=== PATIENT | female | born 1985 | race American Indian/Alaskan Native ===

== ENCOUNTER 2017-03-15 16:24 | Emergency (ER) | payer SELFPAY ==
[2017-03-15 17:14] VITALS: BP 128/88
--- NOTE | 2017-03-15 17:46 | Emergency Department Report ---
ED ENT HPI - General Chief complaint: Dental/Oral Stated complaint: LT FACIAL PAIN Time Seen by Provider: 03/15/17 17:36 Source: patient Mode of arrival: Ambulatory Limitations: No Limitations - History of Present Illness Initial comments: Pt c/o left lower toothache since yesterday. PT states the pain is going up the whole side of her face. PT states that she tried otc analgesics and she did not get any relief. PT denies recent dental work or visit. PT has a hx of dental cavities. MD complaint: tooth pain -: Gradual, days(s) Location: tooth # (17) 1 - pain Severity: severe Severity scale (0 -10): 10 Quality: aching, sharp Consistency: constant Improves with: none Worsens with: eating, movement, other (cold, palpation ) Context- Dental: history of dental caries, poor dental care Associated Symptoms: toothache. denies: fever, gum swelling, pain with swallowing, sore throat - Related Data Previous Rx's Medication Instructions Recorded Last Taken Type Acetaminophen/Codeine [Tylenol #3] 1 tab PO Q6H PRN #12 tab 03/15/17 Unknown Rx Clindamycin [Clindamycin CAP] 300 mg PO Q8H #30 cap 03/15/17 Unknown Rx Ibuprofen [Motrin] 600 mg PO Q8H PRN #15 tablet 03/15/17 Unknown Rx Allergies Allergy/AdvReac Type Severity Reaction Status Date / Time ruiz flavor Allergy Anaphylaxis Verified 03/15/17 17:09 Penicillins Allergy Hives Verified 03/15/17 17:09 ED Dental HPI - General Chief complaint: Dental/Oral Stated complaint: LT FACIAL PAIN Time Seen by Provider: 03/15/17 17:36 Source: patient Mode of arrival: Ambulatory Limitations: No Limitations - Related Data Previous Rx's Medication Instructions Recorded Last Taken Type Acetaminophen/Codeine [Tylenol #3] 1 tab PO Q6H PRN #12 tab 03/15/17 Unknown Rx Clindamycin [Clindamycin CAP] 300 mg PO Q8H #30 cap 03/15/17 Unknown Rx Ibuprofen [Motrin] 600 mg PO Q8H PRN #15 tablet 03/15/17 Unknown Rx Allergies Allergy/AdvReac Type Severity Reaction Status Date / Time ruiz flavor Allergy Anaphylaxis Verified 03/15/17 17:09 Penicillins Allergy Hives Verified 03/15/17 17:09 ED Review of Systems ROS: Stated complaint: LT FACIAL PAIN Other details as noted in HPI Comment: All other systems reviewed and negative Constitutional: denies: chills, fever ENT: as per HPI, dental pain Gastrointestinal: denies: abdominal pain, nausea Genitourinary: denies: abnormal menses Neurological: headache (left side of face hurts ) ED Past Medical Hx - Past Medical History Previous Medical History?: No - Surgical History Past Surgical History?: No - Social History Smoking Status: Current Every Day Smoker Substance Use Type: Alcohol - Medications Home Medications: Home Medications Medication Instructions Recorded Confirmed Last Taken Type Acetaminophen/Codeine [Tylenol #3] 1 tab PO Q6H PRN #12 tab 03/15/17 Unknown Rx Clindamycin [Clindamycin CAP] 300 mg PO Q8H #30 cap 03/15/17 Unknown Rx Ibuprofen [Motrin] 600 mg PO Q8H PRN #15 tablet 03/15/17 Unknown Rx ED Physical Exam - General Limitations: No Limitations General appearance: alert, in no apparent distress - Head Head exam: Present: atraumatic, normocephalic, normal inspection - Eye Eye exam: Present: normal appearance, PERRL, EOMI. Absent: conjunctival injection - ENT ENT exam: Present: normal orophraynx, mucous membranes moist, TM's normal bilaterally, normal external ear exam - Expanded ENT Exam Expanded Mouth exam: Present: normal external inspection. Absent: drooling, trismus Teeth exam: Present: dental caries, dental tenderness # (teeth 17 and 18, severe decay, ttp, no abscess noted. ) Throat exam: Positive: normal inspection. Negative: tonsillar erythema, tonsillomegaly, tonsillar exudate - Neck Neck exam: Present: normal inspection, full ROM. Absent: tenderness, meningismus - Respiratory Respiratory exam: Present: normal lung sounds bilaterally. Absent: respiratory distress, wheezes - Cardiovascular Cardiovascular Exam: Present: regular rate, normal rhythm - Extremities Exam Extremities exam: Present: normal inspection, full ROM - Back Exam Back exam: Present: normal inspection, full ROM - Neurological Exam Neurological exam: Present: alert, oriented X3, normal gait - Psychiatric Psychiatric exam: Present: normal affect, normal mood - Skin Skin exam: Present: warm, dry, intact ED Course Vital Signs 03/15/17 17:11 Temperature 98.8 F Pulse Rate 60 Respiratory 17 Rate Blood Pressure 128/88 O2 Sat by Pulse 100 Oximetry - Reevaluation(s) Reevaluation #1: 03/15/17 17:45 PT aware of dx and need to follow up with Dentist. PT has no questions at this time. - Pulse Oximetry Interpretation Digit-Finger Initial Pulse Oximetry Readin Actions Taken: none ED Medical Decision Making - Differential Diagnosis dental abscess, toothache, dental decay Critical Care Time: No Critical care attestation.: If time is entered above; I have spent that time in minutes in the direct care of this critically ill patient, excluding procedure time. ED Disposition Clinical Impression: Dental decay, Toothache Disposition: TO HOME OR SELFCARE Is pt being admited?: No Does the pt Need Aspirin: No Condition: Stable Instructions: Dental Abscess (ED), Dental Caries (ED), Toothache (ED) Additional Instructions: Finish all of your antibiotics no driving or alcohol after taking Tylenol #3 Follow up with a Dentist in the next 3-5 days Refrain from smoking Good oral hygiene Return to the ED if you notice facial swelling, you can not open your mouth or you start to drool Prescriptions: Acetaminophen/Codeine [Tylenol #3] 1 tab PO Q6H PRN #12 tab PRN Reason: Pain , Severe (7-10) Clindamycin [Clindamycin CAP] 300 mg PO Q8H #30 cap Ibuprofen [Motrin] 600 mg PO Q8H PRN #15 tablet PRN Reason: Pain Referrals: PRIMARY CARE, [Primary Care Provider] - 3-5 Days [facility] [Outside] - 3-5 Days Forms: Work/School Release Form(ED) Time of Disposition: 17:48
== END 2017-03-15 19:28 | disposition home or self-care (01) ==
LOC: ED 16:24
DX: K02.9 Dental caries, unspecified (principal); F17.200 Nicotine dependence, unspecified, uncomplicated; Z88.0 Allergy status to penicillin; Z91.018 Allergy to other foods
CPT/HCPCS: 99282

== ENCOUNTER 2019-06-23 16:59 | Emergency (ER) | payer SELFPAY ==
--- NOTE | 2019-06-23 17:04 | Emergency Department Report ---
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 This initial assessment/diagnostic orders/clinical plan/treatment(s) is/are subject to change based on patient's health status, clinical progression and re- assessment by fellow clinical providers in the ED. Further treatment and workup at subsequent clinical providers discretion. Patient/guardians urged not to elope from the ED as their condition may be serious if not clinically assessed and managed. Initial orders include: 1- Patient sent to [facility] for further evaluation and treatment 2- xrays
[2019-06-23 17:07] VITALS: BP 141/88
[2019-06-23] MEDS ORDERED: IBUPROFEN 800 MG TAB PO ONE (18:25)
[2019-06-23] MEDS ORDERED: traMADol 50 MG TAB PO ONE (18:25)
--- NOTE | 2019-06-23 18:32 | XRay Report ---
Left great toe, 3 views INDICATION: Pain following injury today FINDINGS: There is a small minimally distracted chip fracture from the base of the distal phalanx of the great toe toward the lateral side. This shows no significant displacement or angulation. The prox imal phalanx and first metatarsal are intact. No foreign body is seen. Signer Name: Jhonatan Benjamin MD Signed: 06/23/2019 6:27 PM Workstation Name: [id number]
--- NOTE | 2019-06-23 18:41 | Emergency Department Report ---
ED Lower Extremity HPI - General Chief Complaint: Extremity Injury, Lower Stated Complaint: LFT TOE POSS BROKEN/PAIN Time Seen by Provider: 06/23/19 17:03 Source: patient Mode of arrival: Ambulatory Limitations: No Limitations - History of Present Illness Initial Comments: 34-year-old -Russian female presents to the emergency room for left great toe injury. Patient states that it had fallen on her left great toe. Patient comes in pain and swelling. Patient denies any past medical history takes no medications daily basis and has no known drug allergies. MD Complaint: foot injury (great toe) -: This evening Place: home Severity: severe Severity scale (0 -10): 10 Improves With: nothing Context: direct blow Associated Symptoms: swelling - Related Data Previous Rx's Medication Instructions Recorded Last Taken Type Acetaminophen/Codeine [Tylenol #3] 1 tab PO Q6H PRN #12 tab 03/15/17 Unknown Rx Clindamycin [Clindamycin CAP] 300 mg PO Q8H #30 cap 03/15/17 Unknown Rx Ibuprofen [Motrin] 600 mg PO Q8H PRN #15 tablet 03/15/17 Unknown Rx HYDROcodone/APAP 7.5-325 [[place] 1 each PO Q8HR PRN #12 tablet 06/23/19 Unknown Rx 7.5/325] Ibuprofen [Motrin 800 MG tab] 800 mg PO Q8HR PRN #30 tablet 06/23/19 Unknown Rx Allergies Allergy/AdvReac Type Severity Reaction Status Date / Time uriz flavor Allergy Anaphylaxis Verified 03/15/17 17:09 Penicillins Allergy Hives Verified 03/15/17 17:09 ED Review of Systems ROS: Stated complaint: LFT TOE POSS BROKEN/PAIN Other details as noted in HPI Comment: All other systems reviewed and negative ED Past Medical Hx - Past Medical History Previous Medical History?: No - Surgical History Past Surgical History?: No - Social History Smoking Status: Current Every Day Smoker Substance Use Type: None - Medications Home Medications: Home Medications Medication Instructions Recorded Confirmed Last Taken Type Acetaminophen/Codeine [Tylenol #3] 1 tab PO Q6H PRN #12 tab 03/15/17 Unknown Rx Clindamycin [Clindamycin CAP] 300 mg PO Q8H #30 cap 03/15/17 Unknown Rx Ibuprofen [Motrin] 600 mg PO Q8H PRN #15 tablet 03/15/17 Unknown Rx HYDROcodone/APAP 7.5-325 [[place] 1 each PO Q8HR PRN #12 tablet 06/23/19 Unknown Rx 7.5/325] Ibuprofen [Motrin 800 MG tab] 800 mg PO Q8HR PRN #30 tablet 06/23/19 Unknown Rx ED Physical Exam - General Limitations: No Limitations General appearance: alert, in no apparent distress - Head Head exam: Present: atraumatic, normocephalic - Expanded Lower Extremity Exam Left Foot/Toe exam: Present: tenderness, swelling, ecchymosis, erythema Neuro vascular tendon exam: Present: no vascular compromise - Neurological Exam Neurological exam: Present: alert, oriented X3 - Psychiatric Psychiatric exam: Present: normal affect, normal mood - Skin Skin exam: Present: warm, dry, intact, normal color. Absent: rash ED Course Vital Signs 06/23/19 17:06 Temperature 98.8 F Pulse Rate 81 Respiratory 20 Rate Blood Pressure 141/88 O2 Sat by Pulse 99 Oximetry ED Lower Extremity MDM - Radiology Data Radiology results: report reviewed Patient: LUNA MANJARREZ MR#: [id number] : 1985 Acct:[id number] Age/Sex: 34 / F ADM Date: 06/23/19 Loc: ED Attending Dr: Ordering Physician: CAROLINA CLEMENS NP Date of Service: 06/23/19 Procedure(s): XR toe(s) 2+V LT Accession Number(s): [id number] cc: CAROLINA CLEMENS NP Fluoro Time In Minutes: Left great toe, 3 views INDICATION: Pain following injury today FINDINGS: There is a small minimally distracted chip fracture from the base of the distal phalanx of the great toe toward the lateral side. This shows no significant displacement or angulation. The proximal phalanx and first metatarsal are intact. No foreign body is seen. Signer Name: Jhonatan Benjamin MD Signed: 06/23/2019 6:27 PM Workstation Name: [id number] Transcribed By: NICOLETTE Dictated By: Jhonatan Benjamin MD Electronically Authenticated By: Jhonatan Benjamin MD Signed Date/Time: 06/23/191826 DD/ 25 TD/TT: - Medical Decision Making 34-year-old -Russian female presents to the emergency room for left great toe injury. Patient states that it had fallen on her left great toe. Patient comes in pain and swelling. Patient denies any past medical history takes no medications daily basis and has no known drug allergies. Critical care attestation.: If time is entered above; I have spent that time in minutes in the direct care of this critically ill patient, excluding procedure time. ED Disposition Clinical Impression: Fracture of left great toe Disposition: TO HOME OR SELFCARE Is pt being admited?: No Does the pt Need Aspirin: No Condition: Stable Instructions: Toe Fracture (ED) Prescriptions: Ibuprofen [Motrin 800 MG tab] 800 mg PO Q8HR PRN #30 tablet PRN Reason: Pain , Severe (7-10) HYDROcodone/APAP 7.5-325 [D[place]ight 7.5/325] 1 each PO Q8HR PRN #12 tablet PRN Reason: Pain Referrals: PRIMARY CAREMD [Primary Care Provider] - 3-5 Days JOSE KRAFT MD [Staff Physician] - 3-5 Days
== END 2019-06-23 19:30 | disposition home or self-care (01) ==
LOC: ED 16:59
DX: S92.422A Displaced fracture of distal phalanx of left great toe, initial encounter for closed fracture (principal); F17.200 Nicotine dependence, unspecified, uncomplicated; Z79.899 Other long term (current) drug therapy; Z88.0 Allergy status to penicillin; Z91.018 Allergy to other foods; W18.39XA Other fall on same level, initial encounter; Y93.89 Activity, other specified; Y92.89 Other specified places as the place of occurrence of the external cause; Y99.8 Other external cause status

== ENCOUNTER 2019-07-30 20:43 | Emergency (ER) | payer SELFPAY | END 2019-07-30 22:30 | disposition home or self-care (01) | LOC: ED 20:43 | CPT/HCPCS: 36415; 80048; 82550; 83735; 84443; 84702; 85027; 85610; 93005; 93010 ==

== ENCOUNTER 2020-06-14 20:31 | Emergency (ER) | payer SELFPAY ==
--- NOTE | 2020-06-14 22:04 | XRay Report ---
RIGHT KNEE 3 VIEWS INDICATION / CLINICAL INFORMATION: right knee pain COMPARISON: None available. FINDINGS: BONES / JOINT(S): No acute fracture or subluxation. No significant arthritis. SOFT TISSUES: There is a small effusion in the suprapatella bursa. ADDITIONAL FINDINGS: None. Signer Name: Kareem Mccarty MD Signed: 06/14/2020 9:59 PM Workstation Name: [id number]
[2020-06-14] MEDS ORDERED: IBUPROFEN 600 MG TAB PO ONE (22:43)
[2020-06-14] MEDS ORDERED: ONDANSETRON 4 MG ODT TAB PO ONE (22:43)
[2020-06-14] MEDS ORDERED: HYDROcodone/ACETAMINOPHEN 7.5-325MG TAB PO ONE (22:43)
--- NOTE | 2020-06-14 22:59 | Emergency Department Report ---
ED Lower Extremity HPI - General Chief Complaint: Extremity Injury, Lower Stated Complaint: RT KNEE POPPED OUT OF PLACE/PAINFUL Source: patient Mode of arrival: Ambulatory Limitations: No Limitations - History of Present Illness Initial Comments: Patient is a 35-year-old -[place]ine[place] female with no past medical history presents to the ED with complaint of acute onset persistent severe right knee pain and swelling after she buckled while walking 24 hours ago. Patient states that the pain and the swelling have worsened in the last 12 hours. Patient states that the pain is worse with ambulation, palpation or weight-bearing on the right leg. Patient denies fall, traumatic injury, heavy lifting, numbness and tingling or weakness of lower extremities bilaterally, hip pain, low back pain, chest pain, shortness of breath, fever, chills, nausea and vomiting. MD Complaint: knee injury (right ), other (right knee swelling) -: Sudden, hour(s) (24) Injury: Knee: Right (Pain, swelling) Type of Injury: inversion, hyperflexion Place: street/outdoors Severity: severe Severity scale (0 -10): 8 Improves With: nothing Worsens With: weight bearing, movement, palpation Context: walking Associated Symptoms: snap/pop sensation, swelling, able to partially bear weight. denies: numbness, tingling, unable to bear weight - Related Data Previous Rx's Medication Instructions Recorded Last Taken Type Acetaminophen/Codeine [Tylenol #3] 1 tab PO Q6H PRN #12 tab 03/15/17 Unknown Rx Clindamycin [Clindamycin CAP] 300 mg PO Q8H #30 cap 03/15/17 Unknown Rx Ibuprofen [Motrin] 600 mg PO Q8H PRN #15 tablet 03/15/17 Unknown Rx HYDROcodone/APAP 7.5-325 [[place] 1 each PO Q8HR PRN #12 tablet 06/23/19 Unknown Rx 7.5/325] Ibuprofen [Motrin 800 MG tab] 800 mg PO Q8HR PRN #30 tablet 06/14/20 Unknown Rx methOCARBAMOL [Robaxin TAB] 500 mg PO Q12H PRN #24 tab 06/14/20 Unknown Rx predniSONE [Deltasone] 40 mg PO QDAY #10 tab 06/14/20 Unknown Rx traMADoL [Ultram] 50 mg PO Q6HR PRN #12 tablet 06/14/20 Unknown Rx Allergies Allergy/AdvReac Type Severity Reaction Status Date / Time ruiz flavor Allergy Anaphylaxis Verified 03/15/17 17:09 Penicillins Allergy Hives Verified 03/15/17 17:09 ED Review of Systems ROS: Stated complaint: RT KNEE POPPED OUT OF PLACE/PAINFUL Other details as noted in HPI Constitutional: denies: chills, fever Eyes: denies: eye pain, eye discharge, vision change ENT: denies: ear pain, throat pain Respiratory: denies: cough, shortness of breath, wheezing Cardiovascular: denies: chest pain, palpitations Endocrine: no symptoms reported Gastrointestinal: denies: abdominal pain, nausea, diarrhea Genitourinary: denies: urgency, dysuria, discharge Musculoskeletal: joint swelling (Right knee), arthralgia (Right knee pain and swelling). denies: back pain Skin: denies: rash, lesions Neurological: denies: headache, weakness, paresthesias Psychiatric: denies: anxiety, depression Hematological/Lymphatic: denies: easy bleeding, easy bruising ED Past Medical Hx - Past Medical History Previous Medical History?: No - Surgical History Past Surgical History?: No - Social History Smoking Status: Current Every Day Smoker Substance Use Type: None - Medications Home Medications: Home Medications Medication Instructions Recorded Confirmed Last Taken Type Acetaminophen/Codeine [Tylenol #3] 1 tab PO Q6H PRN #12 tab 03/15/17 Unknown Rx Clindamycin [Clindamycin CAP] 300 mg PO Q8H #30 cap 03/15/17 Unknown Rx Ibuprofen [Motrin] 600 mg PO Q8H PRN #15 tablet 03/15/17 Unknown Rx HYDROcodone/APAP 7.5-325 [[place] 1 each PO Q8HR PRN #12 tablet 06/23/19 Unknown Rx 7.5/325] Ibuprofen [Motrin 800 MG tab] 800 mg PO Q8HR PRN #30 tablet 06/14/20 Unknown Rx methOCARBAMOL [Robaxin TAB] 500 mg PO Q12H PRN #24 tab 06/14/20 Unknown Rx predniSONE [Deltasone] 40 mg PO QDAY #10 tab 06/14/20 Unknown Rx traMADoL [Ultram] 50 mg PO Q6HR PRN #12 tablet 06/14/20 Unknown Rx ED Physical Exam - General Limitations: No Limitations General appearance: alert, in no apparent distress - Head Head exam: Present: atraumatic, normocephalic, normal inspection - Eye Eye exam: Present: normal appearance, PERRL, EOMI Pupils: Present: normal accommodation - ENT ENT exam: Present: normal exam, normal orophraynx, mucous membranes moist, TM's normal bilaterally, normal external ear exam - Neck Neck exam: Present: normal inspection, full ROM - Respiratory Respiratory exam: Present: normal lung sounds bilaterally. Absent: respiratory distress, wheezes, rales, rhonchi, chest wall tenderness, accessory muscle use, prolonged expiratory - Cardiovascular Cardiovascular Exam: Present: regular rate, normal rhythm, normal heart sounds. Absent: systolic murmur, diastolic murmur, rubs, gallop - GI/Abdominal GI/Abdominal exam: Present: soft, normal bowel sounds. Absent: tenderness, guarding, rebound, hyperactive bowel sounds, hypoactive bowel sounds, organomegaly - Extremities Exam Extremities exam: Present: normal inspection, tenderness (Palpable right knee tenderness with mild swelling and limited range of motion due to pain), normal capillary refill, joint swelling (Right knee swelling mildly). Absent: full ROM (Limited range of motion due to pain on right knee), pedal edema, calf tenderness - Back Exam Back exam: Present: normal inspection, full ROM. Absent: tenderness, CVA tenderness (R), CVA tenderness (L), muscle spasm, paraspinal tenderness, vertebral tenderness - Neurological Exam Neurological exam: Present: alert, oriented X3, CN II-XII intact, normal gait, reflexes normal - Psychiatric Psychiatric exam: Present: normal affect, normal mood - Skin Skin exam: Present: warm, dry, intact, normal color. Absent: rash ED Course Vital Signs 06/14/20 21:10 Temperature 98.9 F Pulse Rate 85 Respiratory 18 Rate Blood Pressure 138/86 O2 Sat by Pulse 99 Oximetry ED Lower Extremity MDM - Radiology Data Radiology results: report reviewed, image reviewed Findings [facility] [address] [place] [address] XRay Report Signed Patient: LUNA MANJARREZ MR#: [id number] : 1985 Acct:[id number] Age/Sex: 35 / F ADM Date: 06/14/20 Loc: ED Attending Dr: Ordering Physician: ED DOCMD Date of Service: 06/14/20 Procedure(s): XR knee 3V RT Accession Number(s): [id number] cc: ED DOC, Fluoro Time In Minutes: RIGHT KNEE 3 VIEWS INDICATION / CLINICAL INFORMATION: right knee pain COMPARISON: None available. FINDINGS: BONES / JOINT(S): No acute fracture or subluxation. No significant arthritis. SOFT TISSUES: There is a small effusion in the suprapatella bursa. ADDITIONAL FINDINGS: None. Signer Name: Kareem Mccarty MD Signed: 06/14/2020 9:59 PM Workstation Name: [id number] Transcribed By: JAS Dictated By: Kareem Mccarty MD Electronically Authenticated By: Kaerem Mccarty MD Signed Date/Time: 06/14/202158 DD/ 57 TD/TT: - Medical Decision Making This is a 35-year-old -[place] female with no past medical history presents to the ED with complaint of acute onset persistent severe right knee pain and swelling after she buckled while walking 24 hours ago. Patient states that the pain and the swelling have worsened in the last 12 hours. Patient states that the pain is worse with ambulation, palpation or weight-bearing on the right leg. In the ED, patient is alert and oriented x3 and is not in distress. Patient however appears to be in significant pain. Patient was treated for pain in the ED and right knee x-ray shows no acute fractures or subluxation but mild joint effusion. Patient's right knee was splinted with [place] wrap and the patient was discharged home on pain medications and advised to follow-up with her primary care physician in 5 to 7 days for reevaluation or return to the ED immediately if symptoms get worse. - Differential Diagnosis Muscle strain; knee sprain; knee fracture; DJD; muscle spasm Critical care attestation.: If time is entered above; I have spent that time in minutes in the direct care of this critically ill patient, excluding procedure time. ED Disposition Clinical Impression: Sprain of right knee Qualifiers: Encounter type: initial encounter Involved ligament of knee: unspecified ligament Qualified Code(s): S83.91XA - Sprain of unspecified site of right knee, initial encounter Muscle strain of right knee Qualifiers: Encounter type: initial encounter Qualified Code(s): S86.911A - Strain of unspecified muscle(s) and tendon(s) at lower leg level, right leg, initial encounter Disposition: TO HOME OR SELFCARE Is pt being admited?: No Does the pt Need Aspirin: No Condition: Stable Instructions: Muscle Strain, [id number], Knee Sprain, Adult, [id number] Additional Instructions: The right knee x-ray shows no acute fractures or subluxations. Therefore take pain medications with food, drink plenty of fluids and follow-up with your primary care physician in 5 to 7 days for reevaluation. Return to the ED immediately if symptoms get worse. Prescriptions: predniSONE [Deltasone] 40 mg PO QDAY #10 tab Ibuprofen [Motrin 800 MG tab] 800 mg PO Q8HR PRN #30 tablet PRN Reason: Pain , Severe (7-10) methOCARBAMOL [Robaxin TAB] 500 mg PO Q12H PRN #24 tab PRN Reason: Muscle Spasm traMADoL [Ultram] 50 mg PO Q6HR PRN #12 tablet PRN Reason: Pain Referrals: [facility] [Provider Group] - 3-5 Days Forms: Work/School Release Form(ED) Time of Disposition: 23:11 Print Language: CENTRAL AFRICAN
[2020-06-15 01:20] VITALS: BP 132/85
== END 2020-06-15 | disposition home or self-care (01) ==
LOC: ED 20:31
DX: S83.91XA Sprain of unspecified site of right knee, initial encounter (principal); S86.911A Strain of unspecified muscle(s) and tendon(s) at lower leg level, right leg, initial encounter; F17.200 Nicotine dependence, unspecified, uncomplicated; Z88.0 Allergy status to penicillin; Z79.899 Other long term (current) drug therapy; Z91.018 Allergy to other foods; X58.XXXA Exposure to other specified factors, initial encounter; Y93.89 Activity, other specified; Y92.89 Other specified places as the place of occurrence of the external cause; Y99.8 Other external cause status
CPT/HCPCS: Q0162

== ENCOUNTER 2021-06-19 14:53 | Emergency (ER) | payer SELFPAY ==
[2021-06-19] MEDS ORDERED: oxyCODONE /ACETAMINOPHEN 5-325MG TAB PO ONE (15:06)
[2021-06-19] MEDS ORDERED: IBUPROFEN 800 MG TAB PO STA (15:06)
--- NOTE | 2021-06-19 15:15 | Emergency Department Report ---
ED General Adult HPI - General Chief complaint: Extremity Injury, Lower Stated complaint: LT ANKLE SWOLLEN Time Seen by Provider: 06/19/21 15:04 Source: patient Mode of arrival: Ambulatory Limitations: No Limitations - History of Present Illness Initial comments: 36-year-old -[place] female patient presents with complaints of left ankle pain after twisting injury last night. She rates her pain as a 9/10 in severity and states it worsened upon waking this morning. Pain worsens with ambulation and to touch. She denies any loss of sensation or discoloration to her skin. - Related Data Previous Rx's Medication Instructions Recorded Last Taken Type Acetaminophen/Codeine [Tylenol #3] 1 tab PO Q6H PRN #12 tab 03/15/17 Unknown Rx Clindamycin [Clindamycin CAP] 300 mg PO Q8H #30 cap 03/15/17 Unknown Rx Ibuprofen [Motrin] 600 mg PO Q8H PRN #15 tablet 03/15/17 Unknown Rx HYDROcodone/APAP 7.5-325 [[place] 1 each PO Q8HR PRN #12 tablet 06/23/19 Unknown Rx 7.5/325] Ibuprofen [Motrin 800 MG tab] 800 mg PO Q8HR PRN #30 tablet 06/14/20 Unknown Rx methOCARBAMOL [Robaxin TAB] 500 mg PO Q12H PRN #24 tab 06/14/20 Unknown Rx predniSONE [Deltasone] 40 mg PO QDAY #10 tab 06/14/20 Unknown Rx traMADoL [Ultram] 50 mg PO Q6HR PRN #12 tablet 06/14/20 Unknown Rx Acetaminophen/Codeine [Tylenol 1 tab PO Q8H PRN #12 tab 06/19/21 Unknown Rx /Codeine # 3 tab] Naproxen [Naprosyn] 500 mg PO BID PRN #20 tablet 06/19/21 Unknown Rx Allergies Allergy/AdvReac Type Severity Reaction Status Date / Time ruiz flavor Allergy Anaphylaxis Verified 03/15/17 17:09 Penicillins Allergy Hives Verified 03/15/17 17:09 ED Review of Systems ROS: Stated complaint: LT ANKLE SWOLLEN Other details as noted in HPI ED Past Medical Hx - Past Medical History Previous Medical History?: No - Surgical History Past Surgical History?: No - Social History Smoking Status: Current Every Day Smoker Substance Use Type: None - Medications Home Medications: Home Medications Medication Instructions Recorded Confirmed Last Taken Type Acetaminophen/Codeine [Tylenol #3] 1 tab PO Q6H PRN #12 tab 03/15/17 Unknown Rx Clindamycin [Clindamycin CAP] 300 mg PO Q8H #30 cap 03/15/17 Unknown Rx Ibuprofen [Motrin] 600 mg PO Q8H PRN #15 tablet 03/15/17 Unknown Rx HYDROcodone/APAP 7.5-325 [[place] 1 each PO Q8HR PRN #12 tablet 06/23/19 Unknown Rx 7.5/325] Ibuprofen [Motrin 800 MG tab] 800 mg PO Q8HR PRN #30 tablet 06/14/20 Unknown Rx methOCARBAMOL [Robaxin TAB] 500 mg PO Q12H PRN #24 tab 06/14/20 Unknown Rx predniSONE [Deltasone] 40 mg PO QDAY #10 tab 06/14/20 Unknown Rx traMADoL [Ultram] 50 mg PO Q6HR PRN #12 tablet 06/14/20 Unknown Rx Acetaminophen/Codeine [Tylenol 1 tab PO Q8H PRN #12 tab 06/19/21 Unknown Rx /Codeine # 3 tab] Naproxen [Naprosyn] 500 mg PO BID PRN #20 tablet 06/19/21 Unknown Rx ED Physical Exam - General Limitations: No Limitations ED Course Vital Signs 06/19/21 06/19/21 06/19/21 14:56 15:15 16:15 Temperature 98 F Pulse Rate 108 H 81 Respiratory 16 16 20 Rate Blood Pressure 168/78 148/88 [Left] O2 Sat by Pulse 99 98 Oximetry - Procedure Description Procedures done: Patient placed in Raghu splint. She tolerated procedure well without any immediate complications. She has normal perfusion and sensation of the toes post splint application and denies any pain ED Medical Decision Making - Radiology Data Radiology results: report reviewed Left ankle, 3 views HISTORY: Lateral pain and swelling after injury COMPARISON: None FINDINGS: There is a tiny acute appearing avulsion fracture of the distal tip of the lateral malleolus. No additional fracture. Ankle mortise is symmetric. Talar dome is intact. Lateral ankle soft tissue swelling. - Medical Decision Making Small avulsion fracture noted to tip of lateral malleolus on x-ray. Patient placed in a Raghu splint. Her pain is controlled and she is well-appearing stable for discharge home. She is to follow-up with orthopedics within 3 to 5 days. Discussed in detail signs and symptoms that should prompt immediate return to the ED with patient who verbalizes understanding. Critical care attestation.: If time is entered above; I have spent that time in minutes in the direct care of this critically ill patient, excluding procedure time. ED Disposition Clinical Impression: Avulsion fracture of distal fibula Disposition: HOME / SELF CARE / HOMELESS Is pt being admited?: No Condition: Stable Instructions: Cast or Splint Care, Adult, [id number], Tibial and Fibular Fractures Prescriptions: Naproxen [Naprosyn] 500 mg PO BID PRN #20 tablet PRN Reason: pain Acetaminophen/Codeine [Tylenol /Codeine # 3 tab] 1 tab PO Q8H PRN #12 tab PRN Reason: Pain , Severe (7-10) [facility] [Provider Group] - 3-5 Days JOSE KRAFT MD [Staff Physician] - 3-5 Days
[2021-06-19 16:16] VITALS: BP 148/88
--- NOTE | 2021-06-19 16:17 | XRay Report ---
Left ankle, 3 views HISTORY: Lateral pain and swelling after injury COMPARISON: None FINDINGS: There is a tiny acute appearing avulsion fracture of the distal tip of the lateral malleolu s. No additional fracture. Ankle mortise is symmetric. Talar dome is intact. Lateral ankle soft tissu e swelling. Signer Name: Jhonatan Bhatt MD Signed: 06/19/2021 4:12 PM Workstation Name: [id number]
== END 2021-06-19 17:29 | disposition home or self-care (01) ==
LOC: ED 14:53
DX: S82.832A Other fracture of upper and lower end of left fibula, initial encounter for closed fracture (principal); F17.200 Nicotine dependence, unspecified, uncomplicated; Z88.0 Allergy status to penicillin; Z91.018 Allergy to other foods; X50.1XXA Overexertion from prolonged static or awkward postures, initial encounter; Y93.89 Activity, other specified; Y92.89 Other specified places as the place of occurrence of the external cause; Y99.8 Other external cause status
CPT/HCPCS: 99283